=== PATIENT | female | born 1975 | race Caucasian/White ===

== ENCOUNTER 2023-03-18 07:35 | Outpatient (CLI) | payer BC ==
[2023-03-18] MEDS ORDERED: Iopamidol 370 76% 100 ML VIAL ONE (10:18)
== END 2023-03-18 07:36 | disposition home or self-care (01) ==
LOC: CSHCT 07:35
PROVIDERS: ATTEND Psychiatry & Neurology Neurology
DX: R94.02 Abnormal brain scan (principal)
CPT/HCPCS: 70496

== ENCOUNTER 2023-10-08 11:52 | Outpatient (CLI) | payer BC | END 2023-10-08 11:53 | disposition home or self-care (01) | LOC: CSHRAD 11:52 | PROVIDERS: ATTEND Psychiatry & Neurology Neurology | DX: M54.2 Cervicalgia (principal); M47.812 Spondylosis without myelopathy or radiculopathy, cervical region | CPT/HCPCS: 72040 ==

== ENCOUNTER 2024-02-05 10:55 | Outpatient (CLI) | payer BC | END 2024-02-05 10:56 | disposition home or self-care (01) | LOC: CSHMAMMO 10:55 | PROVIDERS: ATTEND Student in an Organized Health Care Education/Training Program | DX: Z12.31 Encounter for screening mammogram for malignant neoplasm of breast (principal) | CPT/HCPCS: 77063; 77067 ==

== ENCOUNTER 2025-03-13 12:06 | Outpatient (CLI) | payer BC | END 2025-03-13 12:07 | disposition home or self-care (01) | LOC: CSHULT 12:06 | PROVIDERS: ATTEND Student in an Organized Health Care Education/Training Program | DX: N92.6 Irregular menstruation, unspecified (principal); D25.9 Leiomyoma of uterus, unspecified; N83.202 Unspecified ovarian cyst, left side | CPT/HCPCS: 76856; 93976 ==